=== PATIENT | male | born 1985 | race African-American/Black ===

== ENCOUNTER 2022-07-04 09:19 | Emergency (ER) | payer MEDICAID, OTHER ==
[~2022-07-04] VITALS: Ht 193 cm; Wt 121.7 kg
[2022-07-04 09:24] VITALS: BP 173/93
[2022-07-04] MEDS ORDERED: MOXI400T31 PO (10:20)
[2022-07-04] MEDS ORDERED: CEPH500C2 MT (10:20)
== END 2022-07-04 11:14 | disposition home or self-care (01) ==
LOC: ER 09:19
DX: N34.2 Other urethritis (principal)
CPT/HCPCS: 99283

== ENCOUNTER 2022-08-09 18:52 | Emergency (ER) | payer MEDICAID, OTHER ==
[~2022-08-09] VITALS: Ht 188 cm; Wt 101.0 kg
[~2022-08-09 18:52] MED LIST: CEPH500C2 MT; MOXI400T31 PO
[2022-08-09 18:59] VITALS: BP 165/96
== END 2022-08-10 02:00 | disposition left against medical advice (07) ==
LOC: ER 18:52
DX: Z53.21 Procedure and treatment not carried out due to patient leaving prior to being seen by health care provider (principal)

== ENCOUNTER 2022-10-16 09:21 | Emergency (ER) | payer MEDICAID, OTHER ==
[~2022-10-16] VITALS: Ht 193 cm; Wt 118.0 kg
[2022-10-16 09:32] VITALS: BP 189/118
[2022-10-16 11:39] LABS: CLARITY URINE CLEAR (CLEAR); COLOR URINE YELLOW (YELLOW); KETONES URINE NEGATIVE (NEGATIVE); LEUKOCYTE ESTERASE URINE NEGATIVE (NEGATIVE); NITRITE URINE NEGATIVE (NEGATIVE); OCCULT BLOOD URINE NEGATIVE (NEGATIVE); PH URINE 8.5 (4.5-8.0); PROTEIN URINE NEGATIVE (NEGATIVE); SPECIFIC GRAVITY URINE 1.021 (1.005-1.030); UROBILINOGEN URINE 0.2 E.U./dL (0.2-1.0)
[2022-10-19 04:07] LABS: NEISSERIA GONORRHOEAE NAA Negative (Negative)
== END 2022-10-16 11:45 | disposition left against medical advice (07) ==
LOC: ER 09:21
DX: R36.9 Urethral discharge, unspecified (principal); Z20.2 Contact with and (suspected) exposure to infections with a predominantly sexual mode of transmission
CPT/HCPCS: 81003; 87491; 87591; 99283

== ENCOUNTER 2024-10-23 12:40 | Emergency (ER) | payer SELFPAY ==
[~2024-10-23] VITALS: Ht 190.5 cm; Wt 117.0 kg
[2024-10-23 12:55] VITALS: BP 136/94; PULSE 87; TEMP 98.6; O2SAT 97
[2024-10-23] MEDS: IBUPROFEN 800MG TABLET PO ONE (13:24)
[2024-10-23 13:34] LABS: BASOPHILS % 0.6 % (0.0-2.0); DIFFERENTIAL COMMENT 0; EOSINOPHILS % 2.9 % (0.0-5.0); HEMATOCRIT. 46.4 % (42.0-52.0); HEMOGLOBIN. 14.6 g/dL (14.0-18.0); LYMPHOCYTES % 51.8 % (20.0-50.0); MEAN CORPUSCULAR HEMOGLOBIN 22.3 pg (28.0-32.0); MEAN CORPUSCULAR HGB CONC 31.4 g/dL (31.0-37.0); MEAN PLATELET VOLUME 8.6 fl (7.4-10.4); MONOCYTES % 7.1 % (2.0-8.0); NEUTROPHILS % 37.6 % (40.0-76.0); PLATELET 217 x1000/uL (130-400); RED BLOOD CELL COUNT 6.54 mill/uL (4.7-6.1); RED CELL DISTRIBUTION WIDTH 16.1 % (11.6-14.6); WHITE BLOOD COUNT 3.6 x1000/uL (4.5-11.0)
[2024-10-23 13:52] LABS: CALCIUM 9.5 mg/dL (8.7-10.4); CARBON DIOXIDE 29 mEq/L (21-32); CHLORIDE 107 mEq/L (98-107); SODIUM 140 mEq/L (136-145)
[2024-10-23 13:57] LABS: CLARITY URINE CLEAR (CLEAR); COLOR URINE YELLOW (YELLOW); GLUCOSE URINE NEGATIVE (NEGATIVE); KETONES URINE NEGATIVE (NEGATIVE); LEUKOCYTE ESTERASE URINE NEGATIVE (NEGATIVE); NITRITE URINE NEGATIVE (NEGATIVE); OCCULT BLOOD URINE NEGATIVE (NEGATIVE); PH URINE 6.5 (4.5-8.0); PROTEIN URINE NEGATIVE (NEGATIVE); SPECIFIC GRAVITY URINE 1.022 (1.005-1.030)
[2024-10-23 13:57] LABS: GLUCOSE 85 mg/dL (70-105)
[2024-10-23 13:58] LABS: CREATININE 1.3 mg/dL (0.6-1.3); UREA NITROGEN BLOOD 11 mg/dL (9-23)
[2024-10-23 13:59] LABS: ALANINE AMINOTRANSFERASE 8 IU/L (10-49); ALBUMIN 4.5 g/dL (3.2-4.8); ASPARTATE AMINOTRANSFERASE 19 IU/L (<34)
[2024-10-23 14:00] LABS: BILIRUBIN DIRECT 0.2 mg/dL (<=3.0); BILIRUBIN TOTAL 0.8 mg/dL (0.1-1.0); PROTEIN TOTAL 7.8 g/dL (6.0-8.3)
[2024-10-23] MEDS ORDERED: DICL75TA5 MT (15:13)
[2024-10-23 15:30] VITALS: RESP 18
== END 2024-10-23 15:30 | disposition home or self-care (01) ==
LOC: ER 13:26
DX: R10.9 Unspecified abdominal pain (principal); I10 Essential (primary) hypertension
CPT/HCPCS: 36415; 74176; 80048; 80076; 81003; 85025; 86850; 86900; 99284

== ENCOUNTER 2025-01-04 16:56 | Emergency (ER) | payer BC ==
[~2025-01-04] VITALS: Ht 188 cm; Wt 107.0 kg
[~2025-01-04 16:56] MED LIST changes: +DICL75TA5 MT
[2025-01-04 17:06] VITALS: O2SAT 100
[2025-01-04 18:35] LABS: BASOPHILS % 0.5 % (0.0-2.0); DIFFERENTIAL COMMENT 0; EOSINOPHILS % 2.5 % (0.0-5.0); HEMATOCRIT. 47.9 % (42.0-52.0); HEMOGLOBIN. 15.5 g/dL (14.0-18.0); LYMPHOCYTES % 44.6 % (20.0-50.0); MEAN CORPUSCULAR HEMOGLOBIN 22.8 pg (28.0-32.0); MEAN CORPUSCULAR HGB CONC 32.3 g/dL (31.0-37.0); MEAN CORPUSCULAR VOLUME 70.6 fL (80.0-94.0); MEAN PLATELET VOLUME 7.1 fl (7.4-10.4); MONOCYTES % 6.3 % (2.0-8.0); NEUTROPHILS % 46.1 % (40.0-76.0); PLATELET 231 x1000/uL (130-400); RED BLOOD CELL COUNT 6.79 mill/uL (4.7-6.1); RED CELL DISTRIBUTION WIDTH 16.3 % (11.6-14.6); WHITE BLOOD COUNT 4.7 x1000/uL (4.5-11.0)
[2025-01-04 18:45] LABS: CHLORIDE 107 mEq/L (98-107); SODIUM 139 mEq/L (136-145)
[2025-01-04 18:46] LABS: CALCIUM 9.7 mg/dL (8.7-10.4); CARBON DIOXIDE 29 mEq/L (21-32)
[2025-01-04 18:51] LABS: CREATININE 1.4 mg/dL (0.6-1.3); GLUCOSE 89 mg/dL (70-105); UREA NITROGEN BLOOD 18 mg/dL (9-23)
[2025-01-04 18:52] LABS: TROPONIN I HIGH SENSITIVITY 26 ng/L (3.0-53)
[2025-01-04 18:53] LABS: ALANINE AMINOTRANSFERASE 9 IU/L (10-49); ALBUMIN 4.5 g/dL (3.2-4.8); ASPARTATE AMINOTRANSFERASE 18 IU/L (<34); BILIRUBIN DIRECT 0.1 mg/dL (<=3.0); BILIRUBIN TOTAL 0.6 mg/dL (0.1-1.0); PROTEIN TOTAL 7.9 g/dL (6.0-8.3)
[2025-01-04 20:05] LABS: TROPONIN I HIGH SENSITIVITY 25 ng/L (3.0-53)
[2025-01-04 21:43] VITALS: BP 166/105; PULSE 66; RESP 16; TEMP 36.6; O2SAT 98
== END 2025-01-04 22:05 | disposition home or self-care (01) ==
LOC: ER 16:56
DX: I10 Essential (primary) hypertension (principal); Z86.11 Personal history of tuberculosis; Z79.899 Other long term (current) drug therapy
CPT/HCPCS: 36415; 71045; 80048; 80076; 83880; 84484; 85025; 93005; 99284